=== PATIENT | female | born 1930 | race Caucasian/White ===

== ENCOUNTER 2017-12-17 11:07 | Inpatient (IN) | payer MEDICARE, BC ==
[2017-12-17] MEDS: Aspirin 325 MG Tab.EC PO SCH (17:37)
--- NOTE | 2017-12-17 18:23 | PCM.HP ---
H&P History of Present Illness - General Date of Service: 12/17/17 Admit Problem/Dx: Admission Diagnosis/Problem Admission Diagnosis/Problem Arthroplasty of knee Source of Information: Patient, Old Records History Limitations: Reports: No Limitations - History of Present Illness Initial Comments - Free Text/Narative: This is an 87-year-old female patient that her left TKA in [place] per Dr. Hoang. She was sent here to swing bed. The nurses in [place] report there was some delirium. She seems to be doing well here. She says her pain is much better and she's not using any hydrocodone because that causes some confusion. She has no other concerns at this time. She denies chest pain, shortness of breath, fevers or chills. Denies Pain Score (Numeric/FACES): 0 - Related Data Allergies/Adverse Reactions: Allergies Allergy/AdvReac Type Severity Reaction Status Date / Time Penicillins Allergy Rash Verified 12/17/17 16:07 Home Medications: Home Meds Aspirin/Calcium Carbonate/Mag [Aspirin Buffered 325 mg Tab] 325 mg PO BIDM 03/02 [History] amLODIPine [Norvasc] 2.5 mg PO DAILY 03/02/14 [History] Acetaminophen 500 mg PO Q4H PRN 12/17/17 [History] Ergocalciferol (Vitamin D2) [Drisdol] 50,000 units PO Q7D 12/17/17 [History] Levothyroxine [Synthroid] 50 mcg PO MOFR 12/17/17 [History] Levothyroxine [Synthroid] 100 mcg PO SUTUWETHSA 12/17/17 [History] Pantoprazole Sodium [Protonix] 40 mg PO DAILY 12/17/17 [History] Past Medical History HEENT History: Reports: Cataract, Impaired Vision Cardiovascular History: Reports: Heart Murmur, Hypertension Genitourinary History: Reports: Urinary Incontinence [employer] History: Reports: Other OB/BYN History: Musculoskeletal History: Reports: Arthritis, Back Pain, Chronic Psychiatric History: Reports: Anxiety, Depression Endocrine/Metabolic History: Reports: Hypothyroidism, Vitamin D Deficiency Hematologic History: Reports: Anemia, Iron Deficiency - Infectious Disease History Infectious Disease History: Reports: Chicken Pox, Measles, Mumps, Rubella - Past Surgical History HEENT Surgical History: Reports: Cataract Surgery, Tonsillectomy Respiratory Surgical History: Reports: None Female Surgical History: Reports: Hysterectomy Endocrine Surgical History: Reports: Thyroidectomy Musculoskeletal Surgical History: Reports: Knee Replacement Dermatological Surgical History: Reports: Skin Biopsy Social & Family History - Tobacco Use Smoking Status *Q: Never Smoker Second Hand Smoke Exposure: No - Caffeine Use Caffeine Use: Reports: Coffee Caffeine Use Comment: 2 cups per day. - Recreational Drug Use Recreational Drug Use: No - Living Situation & Occupation Living situation: Reports: Single, Other H&P Review of Systems - Review of Systems: Review Of Systems: See Below General: Reports: No Symptoms HEENT: Reports: No Symptoms Pulmonary: Reports: No Symptoms Cardiovascular: Reports: No Symptoms Gastrointestinal: Reports: No Symptoms Genitourinary: Reports: No Symptoms Musculoskeletal: Reports: Other (See history of present illness) Skin: Reports: No Symptoms Psychiatric: Reports: No Symptoms, Other (See history of present illness) Neurological: Reports: No Symptoms Hematologic/Lymphatic: Reports: No Symptoms Immunologic: Reports: No Symptoms Exam - Exam Exam: See Below - Vital Signs Vital Signs: Last Vital Signs Temp 97.5 F 12/17/17 13:55 Pulse 75 12/17/17 13:55 Resp 18 12/17/17 13:55 BP 116/61 12/17/17 13:55 Pulse Ox 95 12/17/17 13:55 Weight: 146 lb 12.8 oz - Exam General: Alert, Oriented, Cooperative HEENT: PERRLA, Mucosa Moist & [place], Posterior Pharynx Clear, TMs Clear Neck: Supple, Trachea Midline Lungs: Clear to Auscultation, Normal Respiratory Effort Cardiovascular: Regular Rate, Regular Rhythm, Normal S1, Normal S2, Irregular Rhythm GI/Abdominal Exam: Normal Bowel Sounds, Soft, Non-Tender, No Organomegaly, No Distention, No Abnormal Bruit, Pelvis Stable Back Exam: Normal Inspection Extremities: No Pedal Edema, Other (Dressing a left knee. Did not remove it today.) Neuro Extensive - Mental Status: Alert, Oriented x3, Normal Mood/Affect, Normal Cognition Psychiatric: Alert, Normal Affect, Normal Mood - Patient Data Lab Results Last 24 hrs: Laboratory Results - last 24 hr 12/17/17 12/17/17 12/17/17 Range/Units 15:43 15:43 16:30 WBC 10.8 (4.5-12.0) X10-3/uL RBC 3.52 (3.23-5.20) x10(6)uL Hgb 10.8 L (11.5-15.5) g/dL Hct 31.2 (30.0-51.3) % MCV 88.6 (80-96) fL MCH 30.6 (27.7-33.6) pg MCHC 34.6 (32.2-35.4) g/dL RDW 13.9 (11.5-15.5) % Plt Count 203 (125-369) X10(3)uL MPV 8.9 (7.4-10.4) fL Add Manual Diff Yes Neutrophils % (Manual) 80 (46-82) % Band Neutrophils % 2 (0-6) % Lymphocytes % (Manual) 11 L (13-37) % Monocytes % (Manual) 7 (4-12) % Sodium 139 (135-145) mmol/L Potassium 4.1 (3.5-5.3) mmol/L Chloride 102 (100-110) mmol/L Carbon Dioxide 30 (21-32) mmol/L BUN 21 H (7-18) mg/dL Creatinine 0.9 (0.55-1.02) mg/dL Est Cr Clr Drug Dosing 31.04 mL/min Estimated GFR (MDRD) 59 L (>60) BUN/Creatinine Ratio 23.3 H (9-20) Glucose 108 (80-116) mg/dL Calcium 9.2 (8.6-10.2) mg/dL Urine Color Yellow (YELLOW) Urine Appearance Slightly cloudy (CLEAR) Urine pH 6.0 (5.0-6.5) Ur Specific [place] 1.015 (1.010-1.025) Urine Protein Trace (NEGATIVE) mg/dL Urine Glucose (UA) Normal (NEGATIVE) mg/dL Urine Ketones Negative (NEGATIVE) mg/dL Urine Occult Blood Moderate H (NEGATIVE) Urine Nitrite Negative (NEGATIVE) Urine Bilirubin Negative (NEGATIVE) Urine Urobilinogen Normal (NEGATIVE) mg/dL Ur Leukocyte Esterase Negative (NEGATIVE) Urine RBC 0-5 (0) Urine WBC 0-5 (0) Ur Squamous Epith Cells Few H (NS,R,O) Urine Bacteria Few H (NS) Result Diagrams: 12/17/17 15:43 12/17/17 15:43 - Problem List (1) History of arthroplasty of left knee SNOMED Code(s): 520813777 ICD Code: Z96.652 - PRESENCE OF LEFT ARTIFICIAL KNEE JOINT Status: Acute Current Visit: Yes Problem List Initiated/Reviewed/Updated: Yes Orders Last 24hrs: Active Orders 24 hr Category Date Time Status Patient Status [ADT] Routine ADT 12/17/17 14:30 Active Height and Weight [RC] .Mon@0600 Care 12/17/17 14:30 Active Oxygen Therapy [RC] PRN Care 12/17/17 14:30 Active Up With Assistance [RC] ASDIRECTED Care 12/17/17 14:30 Active Vital Signs [RC] PER UNIT ROUTINE Care 12/17/17 14:30 Active OT Evaluation and Treatment [CONS] Routine Cons 12/17/17 14:30 Active PT Evaluation and Treatment [CONS] Routine Cons 12/17/17 14:30 Active Regular Diet [DIET] Diet 12/17/17 Dinner Active Acetaminophen [Tylenol] Med 12/17/17 15:31 Active 500 mg PO Q4H PRN Aspirin [Ecotrin] Med 12/17/17 18:00 Active 325 mg PO BIDMEALS Ergocalciferol (Vitamin D2) [Vitamin D2] Med 12/21/17 09:00 Active 50,000 units PO Q7D Levothyroxine [Synthroid] Med 12/18/17 06:00 Active 100 mcg PO SuTuWeThSa@0600 Levothyroxine [Synthroid] Med 12/20/17 06:00 Active 50 mcg PO MoFr@0600 Pantoprazole [ProTONIX] Med 12/18/17 06:00 Active 40 mg PO DAILY@0600 amLODIPine [Norvasc] Med 12/18/17 09:00 Active 2.5 mg PO DAILY Resuscitation Status Routine Resus Stat 12/17/17 14:30 Ordered Medication Orders Acetaminophen (Tylenol) 500 mg PO Q4H PRN PRN Reason: PAIN Amlodipine Besylate (Norvasc) 2.5 mg PO DAILY ROB Aspirin (Ecotrin) 325 mg PO BIDMEALS ROB Last Admin: 12/17/17 17:37 Dose: 325 mg Ergocalciferol (Vitamin D2) 50,000 units PO Q7D ROB Levothyroxine Sodium (Synthroid) 100 mcg PO SuTuWeThSa@0600 ROB Levothyroxine Sodium (Synthroid) 50 mcg PO MoFr@0600 [facility] Pantoprazole Sodium (Protonix) 40 mg PO DAILY@0600 [facility] Assessment/Plan Comment:: 1. Admit for swing bed. 2. Continue medications and hold hydrocodone. Use tramadol for pain. 3. PT/OT. 4. Observe the see if she has any delirium here. Currently she is doing well as I speak to her. 5. Regular diet 6. Up with assist and activity per PT/OT.
[2017-12-17] MEDS ORDERED: Haloperidol Lactate 5 MG/ML SDV IM ONE (21:20)
[2017-12-18] MEDS: Pantoprazole 40 MG Tab.CR PO SCH (06:27)
[2017-12-18] MEDS: Levothyroxine 100 MCG Tab PO SCH (06:28)
[2017-12-18] MEDS: Aspirin 325 MG Tab.EC PO SCH ×2 (09:56→18:02)
[2017-12-18] MEDS: amLODIPine 2.5 MG Tab PO SCH (09:57)
[2017-12-19] MEDS: Acetaminophen Soln 650 MG/20.3 ML UD Cup PO PRN (02:58)
[2017-12-19] MEDS: Levothyroxine 100 MCG Tab PO SCH (06:47)
[2017-12-19] MEDS: Pantoprazole 40 MG Tab.CR PO SCH (06:47)
[2017-12-19] MEDS: Aspirin 325 MG Tab.EC PO SCH ×2 (08:50→19:59)
[2017-12-19] MEDS: amLODIPine 2.5 MG Tab PO SCH (09:04)
--- NOTE | 2017-12-19 16:20 | PCM.PN ---
- General Info Date of Service: 12/19/17 Admission Dx/Problem (Free Text): Patient states she has some left knee pain. She's not taking any pain medicine at this time. She has no other concerns. - Patient Data Vitals - Most Recent: Last Vital Signs Temp 97.6 F 12/18/17 17:35 Pulse 79 12/18/17 17:35 Resp 14 12/18/17 17:35 BP 96/48 L 12/19/17 09:04 Pulse Ox 96 12/18/17 17:35 Weight - Most Recent: 146 lb 12.8 oz Med Orders - Current: Current Medications Acetaminophen (Tylenol) 500 mg PO Q4H PRN PRN Reason: PAIN Last Admin: 12/19/17 02:58 Dose: 500 mg Amlodipine Besylate (Norvasc) 2.5 mg PO DAILY [facility] Last Admin: 12/19/17 09:04 Dose: Not Given Aspirin (Ecotrin) 325 mg PO BIDMEALS [facility] Last Admin: 12/19/17 08:50 Dose: 325 mg Ergocalciferol (Vitamin D2) 50,000 units PO Q7D [facility] Levothyroxine Sodium (Synthroid) 100 mcg PO SuTuWeThSa@0600 [facility] Last Admin: 12/19/17 06:47 Dose: 100 mcg Levothyroxine Sodium (Synthroid) 50 mcg PO MoFr@0600 [facility] Pantoprazole Sodium (Protonix) 40 mg PO DAILY@0600 [facility] Last Admin: 12/19/17 06:47 Dose: 40 mg Discontinued Medications Haloperidol Lactate (Haldol) 5 mg IM ONETIME ONE Stop: 12/17/17 21:21 Last Admin: 12/17/17 21:55 Dose: 5 mg - Exam General: Alert, Oriented, Cooperative Lungs: Normal Respiratory Effort - Problem List & Annotations (1) History of arthroplasty of left knee SNOMED Code(s): 397295002 Code(s): Z96.652 - PRESENCE OF LEFT ARTIFICIAL KNEE JOINT Status: Acute Current Visit: Yes - Problem List Review Problem List Initiated/Reviewed/Updated: Yes - My Orders Last 24 Hours: My Active Orders 12/20/17 06:00 Levothyroxine [Synthroid] 50 mcg PO MoFr@0600 12/21/17 09:00 Ergocalciferol (Vitamin D2) [Vitamin D2] 50,000 units PO Q7D - Plan Plan:: 1. Blood pressure is been a little low so I'll hold Norvasc. 2. Continue PT/OT and nursing care as previous.
[2017-12-20] MEDS: Levothyroxine 50 MCG Tab PO SCH (07:08)
[2017-12-20] MEDS: Pantoprazole 40 MG Tab.CR PO SCH (07:08)
[2017-12-20] MEDS: Aspirin 325 MG Tab.EC PO SCH ×2 (08:32→17:18)
[2017-12-20] MEDS: Acetaminophen Soln 650 MG/20.3 ML UD Cup PO PRN (13:48)
[2017-12-21] MEDS: Pantoprazole 40 MG Tab.CR PO SCH (07:00)
[2017-12-21] MEDS: Levothyroxine 100 MCG Tab PO SCH (07:00)
[2017-12-21] MEDS: Aspirin 325 MG Tab.EC PO SCH ×2 (07:25→17:04)
[2017-12-21] MEDS: Ergocalciferol (Vitamin D2) 50,000 Unit Cap PO SCH (09:31)
[2017-12-21] MEDS: Acetaminophen Soln 650 MG/20.3 ML UD Cup PO PRN (15:34)
[2017-12-22] MEDS: Levothyroxine 100 MCG Tab PO SCH (06:05)
[2017-12-22] MEDS: Pantoprazole 40 MG Tab.CR PO SCH (06:05)
[2017-12-22] MEDS: Aspirin 325 MG Tab.EC PO SCH ×2 (08:54→17:56)
[2017-12-23] MEDS: Pantoprazole 40 MG Tab.CR PO SCH (06:19)
[2017-12-23] MEDS: Levothyroxine 100 MCG Tab PO SCH (06:19)
[2017-12-23] MEDS: Aspirin 325 MG Tab.EC PO SCH ×2 (08:43→18:28)
[2017-12-23] MEDS: Acetaminophen Soln 650 MG/20.3 ML UD Cup PO PRN (08:43)
[2017-12-24] MEDS: Pantoprazole 40 MG Tab.CR PO SCH (05:39)
[2017-12-24] MEDS: Levothyroxine 50 MCG Tab PO SCH (05:39)
[2017-12-24] MEDS: Aspirin 325 MG Tab.EC PO SCH ×2 (08:15→19:16)
[2017-12-24] MEDS: Acetaminophen Soln 650 MG/20.3 ML UD Cup PO PRN (19:21)
[2017-12-25] MEDS: Pantoprazole 40 MG Tab.CR PO SCH (07:00)
[2017-12-25] MEDS: Levothyroxine 100 MCG Tab PO SCH (07:00)
[2017-12-25] MEDS: Aspirin 325 MG Tab.EC PO SCH ×2 (07:22→17:43)
[2017-12-26] MEDS: Pantoprazole 40 MG Tab.CR PO SCH (07:27)
[2017-12-26] MEDS: Levothyroxine 100 MCG Tab PO SCH (07:27)
[2017-12-26] MEDS: Aspirin 325 MG Tab.EC PO SCH ×2 (09:24→17:38)
[2017-12-27] MEDS: Levothyroxine 50 MCG Tab PO SCH (05:04)
[2017-12-27] MEDS: Pantoprazole 40 MG Tab.CR PO SCH (05:04)
[2017-12-27] MEDS: Aspirin 325 MG Tab.EC PO SCH ×2 (07:56→17:23)
--- NOTE | 2017-12-27 09:16 | PCM.PN ---
- General Info Date of Service: 12/27/17 Subjective Update: Keesha is doing well without any pain. She is working well with physical therapy. - Review of Systems General: Reports: No Symptoms HEENT: Reports: No Symptoms Pulmonary: Reports: No Symptoms Cardiovascular: Reports: No Symptoms - Patient Data Vitals - Most Recent: Last Vital Signs Temp 98.2 F 12/26/17 07:49 Pulse 64 12/26/17 07:49 Resp 18 12/26/17 07:49 BP 133/56 L 12/26/17 07:49 Pulse Ox 98 12/26/17 07:49 Weight - Most Recent: 66.043 kg Med Orders - Current: Current Medications Acetaminophen (Tylenol) 500 mg PO Q4H PRN PRN Reason: PAIN Last Admin: 12/24/17 19:21 Dose: 500 mg Aspirin (Ecotrin) 325 mg PO BIDMEALS [facility] Stop: 01/16/18 08:01 Last Admin: 12/27/17 07:56 Dose: 325 mg Ergocalciferol (Vitamin D2) 50,000 units PO Q7D [facility] Last Admin: 12/21/17 09:31 Dose: 50,000 units Levothyroxine Sodium (Synthroid) 100 mcg PO SuTuWeThSa@0600 [facility] Last Admin: 12/26/17 07:27 Dose: 100 mcg Levothyroxine Sodium (Synthroid) 50 mcg PO MoFr@0600 [facility] Last Admin: 12/27/17 05:04 Dose: 50 mcg Pantoprazole Sodium (Protonix) 40 mg PO DAILY@0600 [facility] Stop: 01/16/18 06:01 Last Admin: 12/27/17 05:04 Dose: 40 mg Discontinued Medications Amlodipine Besylate (Norvasc) 2.5 mg PO DAILY [facility] Last Admin: 12/19/17 09:04 Dose: Not Given Haloperidol Lactate (Haldol) 5 mg IM ONETIME ONE Stop: 12/17/17 21:21 Last Admin: 12/17/17 21:55 Dose: 5 mg - Exam Quality Assessment: No: Supplemental Oxygen General: Alert, Oriented HEENT: Pupils Equal Cardiovascular: Regular Rate, Murmurs Back Exam: Normal Inspection, Full Range of Motion Extremities: Normal Inspection - Problem List & Annotations (1) History of arthroplasty of left knee SNOMED Code(s): 837085292 Code(s): Z96.652 - PRESENCE OF LEFT ARTIFICIAL KNEE JOINT Status: Acute Current Visit: Yes (2) HTN, Essential hypertension SNOMED Code(s): 11942957 Code(s): I10 - ESSENTIAL (PRIMARY) HYPERTENSION Status: Chronic Priority : Medium Current Visit: No Annotation/Comment:: Controlled with home medications. will continue. (3) Hypothyroidism SNOMED Code(s): 07353193 Code(s): E03.9 - HYPOTHYROIDISM, UNSPECIFIED Status: Chronic Priority: Low Current Visit: No Annotation/Comment:: Supplemented and will continue. - Problem List Review Problem List Initiated/Reviewed/Updated: Yes - My Orders Last 24 Hours: My Active Orders 12/26/17 15:19 Dressing Change [Wound Care] [RC] ASDIRECTED - Plan Plan:: Contrinue current Rx. DC soon
[2017-12-28] MEDS: Pantoprazole 40 MG Tab.CR PO SCH (06:20)
[2017-12-28] MEDS: Levothyroxine 100 MCG Tab PO SCH (06:20)
[2017-12-28] MEDS: Aspirin 325 MG Tab.EC PO SCH ×2 (08:01→17:49)
[2017-12-28] MEDS: Ergocalciferol (Vitamin D2) 50,000 Unit Cap PO SCH (08:01)
[2017-12-29] MEDS: Levothyroxine 100 MCG Tab PO SCH (06:04)
[2017-12-29] MEDS: Pantoprazole 40 MG Tab.CR PO SCH (06:04)
[2017-12-29] MEDS: Aspirin 325 MG Tab.EC PO SCH ×2 (08:33→18:17)
[2017-12-30] MEDS: Levothyroxine 100 MCG Tab PO SCH (07:01)
[2017-12-30] MEDS: Pantoprazole 40 MG Tab.CR PO SCH (07:01)
[2017-12-30] MEDS: Aspirin 325 MG Tab.EC PO SCH (09:07)
[2017-12-30 16:17] VITALS: BP 145/73
--- NOTE | 2017-12-31 08:18 | DISCH ---
DISCHARGE DATE: 12/30/2017 REASON FOR ADMISSION: 1. Debility. 2. Arthroplasty, left knee. 3. Hypothyroidism. 4. Hypertension. CONSULTATIONS: Physical and occupational therapy. BRIEF HISTORY: This is an 87-year-old female, who was admitted after arthroplasty of the left knee for rehab and physical therapy. She has done very well and she is ready to go home today. DISCHARGE MEDICATIONS: 1. Aspirin 325 mg b.i.d. up to 01/16. 2. Protonix 40 mg a day up to 01/16. 3. She will also go home on levothyroxine 50 mcg on Wednesday and Wednesday, and 100 mcg the rest of the days. 4. Other discharge medications are acetaminophen 500 mg p.o. q.4 hours p.r.n. 5. Please note that amlodipine that she was taking previously was discontinued. FOLLOWUP: She will need to go to home with home health agency to help with physical therapy and occupational therapy because she will be homebound. Followup in two weeks with PCP. Please note that I spent more than 35 minutes in the discharge of the patient. /[id number] [place]ARIO/CHUY
== END 2017-12-30 10:25 | disposition home health service (06) | DRG 561 ==
LOC: FB.MS 13:44
PROVIDERS: ADMIT Family Medicine; ATTEND Family Medicine
DX: Z47.1 Aftercare following joint replacement surgery (principal); Z96.652 Presence of left artificial knee joint; I10 Essential (primary) hypertension; E03.9 Hypothyroidism, unspecified; G89.29 Other chronic pain; M54.9 Dorsalgia, unspecified; Z23 Encounter for immunization; E53.8 Deficiency of other specified B group vitamins; D50.9 Iron deficiency anemia, unspecified; H54.7 Unspecified visual loss; R32 Unspecified urinary incontinence; Z88.0 Allergy status to penicillin; Z79.82 Long term (current) use of aspirin; Z79.899 Other long term (current) drug therapy
CPT/HCPCS: 36415; 80048; 81001; 85025; 90686; 97110-GO; 97110-GP; 97116-GP; 97161-GP; 97165-GO; 97530-GO; 97530-GP; 97535-GO; 97542-GO; A9270-GY; J1630